=== PATIENT | female | born 1985 | race Caucasian/White ===

== ENCOUNTER → 2017-08-11 | Outpatient (CLI) | payer OTHER ==
[2017-08-11 13:14] LABS: Basophils % (A) 0 %; Eosinophils # (A) 0.3 k/uL (0-0.7); Eosinophils % (A) 5 %; HCT 42.6 % (34.0-46.0); HGB 14.2 gm/dL (11.4-16.0); Lymphocytes # (A) 1.3 k/uL (1.0-4.8); Lymphocytes % (A) 20 %; MCH 30.4 pg (25.0-35.0); MCHC 33.2 g/dL (31.0-37.0); MCV 91.5 fL (80.0-100.0); Mean Platelet Volume 6.8; Monocytes # (A) 0.4 k/uL (0-1.0); Monocytes % (A) 6 %; Neutrophils # (A) 4.3 k/uL (1.3-7.7); Neutrophils % (A) 67 %; Platelet Count 282 k/uL (150-450); RBC 4.65 m/uL (3.80-5.40); RDW 13.2 % (11.5-15.5); WBC 6.4 k/uL (3.8-10.6)
[2017-08-11 13:36] LABS: ALT 30 U/L (9-52); AST 26 U/L (14-36); Albumin 4.3 g/dL (3.5-5.0); Alkaline Phosphatase 80 U/L (38-126); Anion Gap 11 mmol/L; Blood Urea Nitrogen 12 mg/dL (7-17); Calcium 9.3 mg/dL (8.4-10.2); Carbon Dioxide 26 mmol/L (22-30); Chloride 103 mmol/L (98-107); Cholesterol 191 mg/dL (<200); Glucose 107 mg/dL (74-99); HDL Cholesterol 50 mg/dL (40-60); LDL Cholesterol,Calculated 126 mg/dL (0-99); Potassium 4.8 mmol/L (3.5-5.1); Sodium 140 mmol/L (137-145); Total Bilirubin 0.2 mg/dL (0.2-1.3); Total Protein 7.6 g/dL (6.3-8.2); Triglycerides 77 mg/dL (<150)
== END | disposition home or self-care (01) ==
LOC: LABWHC1 12:01
PROVIDERS: ATTEND Nurse Practitioner Family
DX: R63.5 Abnormal weight gain (principal); Z13.0 Encounter for screening for diseases of the blood and blood-forming organs and certain disorders involving the immune mechanism; Z13.1 Encounter for screening for diabetes mellitus; Z13.220 Encounter for screening for lipoid disorders
CPT/HCPCS: 36415; 80053; 80061; 84443; 85025

== ENCOUNTER 2018-08-27 17:55 | Emergency (ER) | payer OTHER ==
[2018-08-27 18:02] VITALS: BP 154/99; PULSE 110; RESP 18; TEMP 98.3
--- NOTE | 2018-08-27 18:26 | ED ---
Upper Extremity HPI - General Chief Complaint: Extremity Injury, Upper Stated Complaint: [facility] - lt wrist injury Time Seen by Provider: 08/27/18 18:03 Source: patient, RN notes reviewed, old records reviewed Mode of arrival: ambulatory Limitations: no limitations - History of Present Illness Initial Comments: Patient is a 33-year-old female who presents emergency Department with left wrist injury. She reports this occurred while she was at work. Patient states she was lifting a shoe box and felt a strain in her left wrist. She is right- handed. She reports tingling sensation in her hand. Denies any history of left wrist injuries. MD Complaint: Injury to:: left, wrist Onset/Timin -: hour(s) Handedness: right Improves With: immobilization Context: other (strain lifting shoe box at work) Associated Symptoms: heard/felt popping sensat - Related Data Home Medications Medication Instructions Recorded Confirmed Pedi Multivit No.25/Folic Acid 2 tab PO DAILY 12/31/15 01/07/16 [Flintstones Multivit Chew Tab] Previous Rx's Medication Instructions Recorded Acetaminophen-Codeine 300-30mg 1 tab PO Q4H PRN #30 tablet 01/08/16 [Tylenol #3] Ibuprofen [Motrin] 600 mg PO Q6HR PRN #30 tab 01/08/16 Ibuprofen 600 mg PO TID #20 tablet 08/27/18 Allergies Allergy/AdvReac Type Severity Reaction Status Date / Time No Known Allergies Allergy Verified 09/03/15 18:24 Review of Systems ROS Statement: Those systems with pertinent positive or pertinent negative responses have been documented in the HPI. ROS Other: All systems not noted in ROS Statement are negative. 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 Past Psychological History: No Psychological Hx Reported Smoking Status: Never smoker Past Alcohol Use History: None Reported Past Drug Use History: None Reported - Past Family History Mother Family Medical History: No Reported History General Exam - General Exam Comments Initial Comments: 33-year-old female. Alert and oriented. No significant distress. Limitations: no limitations General appearance: alert, in no apparent distress Head exam: Present: atraumatic, normocephalic, normal inspection Eye exam: Present: normal appearance, PERRL, EOMI. Absent: scleral icterus, conjunctival injection, periorbital swelling ENT exam: Present: normal exam, mucous membranes moist Neck exam: Present: normal inspection. Absent: tenderness, meningismus, lymphadenopathy Respiratory exam: Present: normal lung sounds bilaterally. Absent: respiratory distress, wheezes, rales, rhonchi, stridor Cardiovascular Exam: Present: regular rate, normal rhythm, normal heart sounds. Absent: systolic murmur, diastolic murmur, rubs, gallop, clicks GI/Abdominal exam: Present: soft, normal bowel sounds. Absent: distended, tenderness, guarding, rebound, rigid Extremities exam: Present: normal inspection, full ROM, normal capillary refill. Absent: tenderness, pedal edema, joint swelling, calf tenderness Left Forearm Wrist exam: Present: normal inspection, full ROM Hand Wrist exam: Present: normal inspection, full ROM, tenderness (She reports tenderness over the thenar eminence, and dorsum of the wrist. Normal capillary refill.) Back exam: Present: normal inspection Neurological exam: Present: alert, oriented X3, CN II-XII intact Psychiatric exam: Present: normal affect, normal mood Skin exam: Present: warm, dry, intact, normal color. Absent: rash Course Vital Signs 08/27/18 17:59 Temperature 98.3 F Pulse Rate 110 H Respiratory 18 Rate Blood Pressure 154/99 O2 Sat by Pulse 98 Oximetry Medical Decision Making - Medical Decision Making Patient is a 33-year-old female presents emergency department today for evaluation for left wrist pain after lifting up a shoe box. has pain over the dorsum of the wrist with extension. She has normal capillary refill and normal sensation distally. X-rays reviewed and normal. Discussed likely strain or sprain of the muscles. Discussed she can follow-up with orthopedic. Given Chaparro wrap splint. Discussed Motrin Tylenol for pain. Disposition Clinical Impression: Left wrist sprain Disposition: HOME SELF-CARE Condition: Good Instructions (If sedation given, give patient instructions): Wrist Injury (ED) Additional Instructions: Patient advised follow-up with primary care physician and orthopedic. Patient ran Chaparro wrap for support of the wrist. Ice the wrist. Return to emergency department if any alarming signs or symptoms occur. Prescriptions: Ibuprofen 600 mg PO TID #20 tablet Is patient prescribed a controlled substance at d/c from ED?: No Referrals: Mellisa Bhakta NPC [Primary Care Provider] - 1-2 days Joshua Galvan PAC [PHYSICIAN [facility] WORKER] - 1-2 days Time of Disposition: 19:06
--- NOTE | 2018-08-27 18:39 | XR ---
EXAMINATION TYPE: XR wrist complete LT DATE OF EXAM: 08/27/2018 CLINICAL HISTORY: Left wrist pain after picking up injury. TECHNIQUE: Frontal, lateral , scaphoid, and oblique images of the left wrist are obtained. COMPARISON: None FINDINGS: There is no acute fracture/dislocation evident in the left wrist. The joint spaces in the left wrist appear within normal limits. The overlying soft tissue appears unremarkable. IMPRESSION: There is no acute fracture or dislocation in the left wrist.
[2018-08-27] MEDS ORDERED: IBUPROFEN 600 MG STARTER PACK 4 TAB BTL PO STA (19:07)
== END 2018-08-27 19:35 | disposition home or self-care (01) ==
LOC: EC 17:55
DX: S63.502A Unspecified sprain of left wrist, initial encounter (principal); Z98.890 Other specified postprocedural states; X50.0XXA Overexertion from strenuous movement or load, initial encounter; Y92.69 Other specified industrial and construction area as the place of occurrence of the external cause; Y99.0 Civilian activity done for income or pay
CPT/HCPCS: 99284

== ENCOUNTER → 2019-08-29 | Outpatient (CLI) | payer OTHER ==
--- NOTE | 2019-08-29 15:35 | MR ---
EXAMINATION TYPE: MR lumbar spine wo/w con DATE OF EXAM: 08/29/2019 COMPARISON: MRI lumbar spine 09/18/2012 HISTORY: LBP, left leg weakness/numbness, surgery 2013 TECHNIQUE: Multiplanar, multisequence images of the lumbar spine were acquired utilizing 7.5 mL intravenous Gada vist gadolinium contrast. L1-L2: Normal disc appearance without desiccation. No herniation, protrusion or disc bulging. Left- sided facet arthropathy abuts and mildly indents the left posterior thecal sac. No canal stenosis is present. Foramina are patent bilaterally. L2-L3: Normal disc appearance without desiccation. No herniation, protrusion or disc bulging. Right -sided facet arthropathy. No canal stenosis is present. Foramina are patent bilaterally. L3-L4: Normal disc appearance without desiccation. Minimal disc bulging. No canal stenosis is presen t. Foramina are patent bilaterally. L4-L5: Disc desiccation. Mild disc bulging. Facet arthropathy. No canal stenosis is present. Mild nadeem ateral neural foramina narrowing. L5-S1: Disc desiccation. Moderate disc height loss. Postsurgical left L5 laminectomy and discectomy c hanges with no residual central or subarticular disc protrusion. There is lateral disc bulging seen b ilaterally. Facet arthropathy. No canal stenosis is present. Moderate left and severe right neural f oramina narrowing. Lumbar segments are intact. No paraspinal masses are identified. Conus medullaris has a normal appe arance and terminates at the level of L1. IMPRESSION: 1. Multilevel degenerative disc disease and facet arthropathy contributing to neural foraminal narro wing at L4-5 and L5-S1, worst at L5-S1 with severe right and moderate left neural foramina narrowing. No canal stenosis. 2. The surgical changes at L5-S1.
== END | disposition home or self-care (01) ==
LOC: RADMRIMAIN 13:28
PROVIDERS: ATTEND Nurse Practitioner Family
DX: M48.07 Spinal stenosis, lumbosacral region (principal); M48.061 Spinal stenosis, lumbar region without neurogenic claudication; M47.896 Other spondylosis, lumbar region; M47.897 Other spondylosis, lumbosacral region; M51.36 Other intervertebral disc degeneration, lumbar region; M51.37 Other intervertebral disc degeneration, lumbosacral region; Z98.890 Other specified postprocedural states
CPT/HCPCS: 72158; A9585

== ENCOUNTER → 2020-01-03 | Outpatient (CLI) | payer OTHER ==
[2020-01-03 13:33] VITALS: BP 141/96; PULSE 98; RESP 18; TEMP 98.9
--- NOTE | 2020-01-03 14:03 | P.PAINCN ---
History of Present Illness - Reason for Consult Consult date: 01/03/20 - History of Present Illness This is a 34-year-old patient referred by Dr. Mckay with a chief complaint of chronic pain in her lower back worse on the left side with radiation into her buttocks, posterior thigh, and left calf. He also has isolated pain in her left knee that radiates down to her foot circumferentially. It is worse with lifting and activity (she works at [employer]) and better with rest. She currently has no pain because she has been resting all day. Overall she is on her feet quite a bit at work working 8 hour shifts at a time and says it's hard to stand for that long. The pain gets very bad she takes Flexeril 10 mg and a Motrin 600 mg which does help. Showing takes these about once a day. In regards her management, she did have an L5 laminectomy discectomy in 2014. She notes that her pain prior to that surgery is the exact same pain as she is having right now. As noted above she takes Flexeril and Motrin as needed for pain medication. She has not tried any formal physical therapy or conservative measures that his chiropractor, massage, TENS unit. In addition to above, 13-point review of systems is also negative for chest pain, shortness of breath, changes in vision, changes in hearing, new onset weakness, abdominal pain, diarrhea, extreme fatigue, malaise, fever, skin changes, homicidal or suicidal ideation, or bowel or bladder incontinence. Physical exam: Vital Signs: Reviewed in EMR GENERAL: Well appearing, in no acute distress PSYCH: Mood and affect is appropriate. Awake, alert, and oriented SKIN: Skin color, texture, turgor normal, no rashes or lesions HEENT: Normocephalic, atraumatic. EOM intact CV: No pedal edema RESP: Respirations are unlabored, no audible wheezing GI: Abdomen non-distended MUSCULOSKELETAL: Bilateral upper and lower extremity strength is normal and symmetric. No atrophy or tone abnormalities are noted. Lumbar spine: Straight leg raising in the sitting position is negative for radicular pain. No pain to palpation over the lumbar spine and paraspinous muscles. Negative for pain with facet loading and back extension/rotation. Normal range of motion without pain reproduction Buttocks: No pain to palpation over the PSIS, Nabor test is negative Extremities: Peripheral joint ROM is full and pain free without obvious instability or laxity in all four extremities. No edema or skin discolorations noted. Gait: Gait is normal NEUR: Bilateral upper and lower extremity coordination and muscle stretch reflexes are 1/4 bilaterally in the patella and achilles. Negative clonus. No loss of sensation is noted. Cranial nerves are grossly intact. Imaging: MRI lumbar spine L1-L2 normal disc appearance. Left facet arthropathy abuts and mildly indents the left posterior thecal sac. L2-L3 normal L3-L4 normal L4-L5 disc bulging, facet arthropathy, mild bilateral neural foraminal narrowing. L5-S1: Disc desiccation, moderate disc height loss. Left L5 laminectomy discectomy changes no residual central subarticular protrusion. Facet arthropathy. Moderate left and severe right neural foraminal narrowing. Assessment: 1. Lumbar radicular pain 2. Knee osteoarthritis Plan: 1. Explanation: Diagnoses, prognoses, and multiple treatment options including but not limited to physical therapy, interventional therapies, medication management and surgery were discussed with the patient and all questions were answered to the patient's satisfaction. 2. Investigations: Aborted left knee x-rays for her. She is having isolated knee pain with Radiation to the foot, unclear if it is coming from the back however she notes that her left knee has been hurting for quite sometimes we can rule out any significant osteoarthritis. 3. Counseling: The patient was counseled for 3 minutes on BODY MASS INDEX, EXERCISE. Specifically, the patient was instructed regarding the importance of weight control, and exercise in the context of both chronic pain and overall health. 4. Procedures: At this point she is having no pains so we will hold off on any procedures. Given that her pain is the same as it was prior to the surgery, were we to order a procedure I would order a left-sided L5-S1 transforaminal epidural she has severe stenosis at the site and is having pain in the L5 and S1 distribution. I encouraged her to call us if her pain comes back in a way that is very severe and we can schedule her for this procedure. Until then we will focus on conservative measures. 5. Consultations: Written her prescription for physical therapy. 6. Medications: I written her prescription for lidocaine patches and TENS un its. I educated her that she can apply these patches all she is at work on areas that hurt the most. I educated her that she can use a TENS unit after days of work which can help calm down any pain flares. 7. Disposition: To see her in 8 weeks see how she's been doing with her conservative management as well as go over knee x-rays. If she does call in sooner than that, schedule her for L5 transforaminal epidural steroid injection on the left side. 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 Smoking Status: Never smoker - Past Family History Mother Family Medical History: No Reported History Medications and Allergies Home Medications Medication Instructions Recorded Confirmed Type Ibuprofen [Motrin] 600 mg PO Q6HR PRN #30 tab 01/08/16 01/03/20 Rx Cyclobenzaprine [Flexeril] 5 mg PO TID PRN 01/03/20 01/03/20 History Allergies Allergy/AdvReac Type Severity Reaction Status Date / Time No Known Allergies Allergy Verified 09/03/15 18:24 Physical Exam Vitals: Vital Signs Temp Pulse Resp BP Pulse Ox 01/03/20 13:27 98.9 F 98 18 141/96 96 Intake and Output 01/02/20 01/03/20 01/03/20 22:59 06:59 14:59 Other: Weight 77.111 kg PQRS Measure Charge Sheet PQRS Narrative: Smoking Status Never smoker Blood Pressure 141/96 Pain Intensity [Left Lower 0 Back] Scale Used Numeric (1 - 10) Hx Alcohol Use (MH) Yes: Rare Home Medications: Ambulatory Orders Ibuprofen [Motrin] 600 mg PO Q6HR PRN #30 tab 01/08/16 Cyclobenzaprine [Flexeril] 5 mg PO TID PRN 01/03/20
== END | disposition home or self-care (01) ==
LOC: PNWHC3 13:10
PROVIDERS: ATTEND Anesthesiology
DX: M54.16 Radiculopathy, lumbar region (principal); M17.10 Unilateral primary osteoarthritis, unspecified knee; Z79.891 Long term (current) use of opiate analgesic; Z79.899 Other long term (current) drug therapy
CPT/HCPCS: 99211

== ENCOUNTER → 2020-02-21 | Outpatient (CLI) | payer OTHER ==
--- NOTE | 2020-02-21 15:50 | XR ---
EXAMINATION TYPE: XR knee complete LT DATE OF EXAM: 02/21/2020 COMPARISON: NONE HISTORY: Pain TECHNIQUE: Three views are submitted. FINDINGS: Joint spaces are preserved. No erosive changes. Osseous structures are intact. No acute fracture se en. IMPRESSION: 1. No acute fracture or dislocation.
== END | disposition home or self-care (01) ==
LOC: RADXRMAIN 15:20
PROVIDERS: ATTEND Anesthesiology
DX: M17.12 Unilateral primary osteoarthritis, left knee (principal)

== ENCOUNTER 2020-09-06 18:17 | Emergency (ER) | payer OTHER ==
[2020-09-06 18:21] VITALS: BP 166/95; TEMP 98
[2020-09-06 18:33] VITALS: PULSE 110; RESP 20
[2020-09-06] MEDS ORDERED: dexAMETHasone 4 MG TAB PO STA (18:53)
--- NOTE | 2020-09-06 18:56 | ED ---
General Adult HPI - General Chief complaint: Back Pain/Injury Stated complaint: back pain Time Seen by Provider: 09/06/20 18:31 Source: patient Mode of arrival: ambulatory Limitations: no limitations - History of Present Illness Initial comments: Dictation was produced using [employer] dictation software. please excuse any grammatical, word or spelling errors. 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 Patient states that she has pain that originates from her left gluteus down the posterior portion of her left lower extremity. She did try the Motrin at home however when it usually works this time it hasn't really been in given her much relief. Patient has . She denies any back pain The ROS documented in this emergency department record has been reviewed and confirmed by me. Those systems with pertinent positive or negative responses have been documented in the HPI. All other systems are other negative and/or noncontributory. PHYSICAL EXAM: General Impression: Alert and oriented x3, not in acute distress HEENT: Normocephalic atraumatic, extra-ocular movements intact, pupils equal and reactive to light bilaterally, mucous membranes moist. Cardiovascular: Heart regular rate and rhythm Chest: Able to complete full sentences, no retractions, no tachypnea Abdomen: abdomen soft, non-tender, non-distended, no organomegaly Musculoskeletal: Pulses present and equal in all extremities, no peripheral edema, test palpation over the left piriformis Motor: no focal deficits noted Neurological: CN II-XII grossly intact, no focal motor or sensory deficits noted Skin: Intact with no visualized rashes Psych: Normal affect and mood ED course: 35-year-old feel clinical presentation consistent with acute on chronic sciatica. Signs upon arrival are within acceptable limits. Patient given a dose of Decadron. She is given analgesia. Patient told to rest her left hip. Patient given work note for 2 days. Massive follow-up with primary care doctor. - Related Data Home Medications Medication Instructions Recorded Confirmed Cyclobenzaprine [Flexeril] 5 mg PO TID PRN 01/03/20 01/03/20 Previous Rx's Medication Instructions Recorded Ibuprofen [Motrin] 600 mg PO Q6HR PRN #30 tab 01/08/16 oxyCODONE HCL/ACETAMINOPHEN 1 tab PO Q6HR PRN 3 Days #12 tab 09/06/20 [Percocet 5-325 mg] Allergies Allergy/AdvReac Type Severity Reaction Status Date / Time No Known Allergies Allergy Verified 09/06/20 18:21 Review of Systems ROS Statement: Those systems with pertinent positive or pertinent negative responses have been documented in the HPI. ROS Other: All systems not noted in ROS Statement are negative. 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 Past Psychological History: No Psychological Hx Reported Smoking Status: Never smoker Past Alcohol Use History: None Reported Past Drug Use History: None Reported - Past Family History Mother Family Medical History: No Reported History General Exam Limitations: no limitations Course Vital Signs 09/06/20 09/06/20 18:18 18:32 Temperature 98.0 F Pulse Rate 121 H 110 H Respiratory 16 20 Rate Blood Pressure 166/95 O2 Sat by Pulse 97 98 Oximetry Medical Decision Making - Lab Data Lab Results 09/06/20 Range/Units 18:34 Urine HCG, Qual Not Detected (Not Detectd) Disposition Clinical Impression: Sciatica Disposition: HOME SELF-CARE Condition: Fair Instructions (If sedation given, give patient instructions): Sciatica (ED) Prescriptions: oxyCODONE HCL/ACETAMINOPHEN [Percocet 5-325 mg] 1 tab PO Q6HR PRN 3 Days #12 tab PRN Reason: Pain Is patient prescribed a controlled substance at d/c from ED?: Yes If prescribed controlled substance>3 days was MAPS reviewed?: Prescribed <3 Days Referrals: Joaquin Melo MD [Primary Care Provider] - 1-2 days
== END 2020-09-06 19:08 | disposition home or self-care (01) ==
LOC: EC 18:17
DX: M54.32 Sciatica, left side (principal); Z79.1 Long term (current) use of non-steroidal anti-inflammatories (NSAID)
CPT/HCPCS: 81025; 99283; J8540

== ENCOUNTER → 2020-10-02 | Outpatient (CLI) | payer OTHER ==
[2020-10-02 19:01] LABS: Basophils # (A) 0.05 X 10*3/uL (0.00-0.10); Basophils % (A) 0.6 %; Eosinophils # (A) 0.18 X 10*3/uL (0.04-0.35); HCT 41.4 % (37.2-46.3); HGB 13.6 g/dL (12.0-15.0); Lymphocytes # (A) 1.84 X 10*3/uL (0.90-5.00); Lymphocytes % (A) 20.5 %; MCH 30.6 pg (27.0-32.0); MCHC 32.9 g/dL (32.0-37.0); MCV 93.2 fL (80.0-97.0); Mean Platelet Volume 10.6 fL (9.5-12.2); Monocytes # (A) 0.81 X 10*3/uL (0.20-1.00); Neutrophils # (A) 6.01 X 10*3/uL (1.80-7.70); Neutrophils % (A) 67.1 %; Platelet Count 256 X 10*3/uL (140-440); RBC 4.44 X 10*6/uL (4.10-5.20); RDW 12.6 % (11.5-14.5); WBC 8.96 X 10*3/uL (4.50-10.00)
[2020-10-02 21:50] LABS: African American GFR (CKD) 109.2 (60.0-200.0); Albumin 4.4 g/dL (3.80-4.90); Albumin/Globulin Ratio 1.47 (1.60-3.17); Anion Gap 10.6 mmol/L (4.00-12.00); BUN/Creat Ratio 17.5 Ratio (12.00-20.00); Calcium 9.2 mg/dL (8.7-10.3); Carbon Dioxide 25.4 mmol/L (21.6-31.8); Chol/HDL Ratio 3.66; LDL Cholesterol,Calculated 136.4 mg/dL (0.0-131.0); Non-African American GFR(CKD) 94.2 (60.0-200.0); Potassium 4.1 mmol/L (3.5-5.5); Total Bilirubin 0.3 mg/dL (0.3-1.2); Total Protein 7.4 g/dL (6.2-8.2); VLDL Calculation 17.6 mg/dL (5.00-40.00)
== END | disposition home or self-care (01) ==
LOC: LABWHC1 12:34
PROVIDERS: ATTEND Nurse Practitioner Family
DX: Z00.00 Encounter for general adult medical examination without abnormal findings (principal); Z13.220 Encounter for screening for lipoid disorders; Z13.1 Encounter for screening for diabetes mellitus
CPT/HCPCS: 36415; 80053; 80061; 85025

== ENCOUNTER → 2020-10-30 | Outpatient (CLI) | payer OTHER ==
--- NOTE | 2020-10-30 12:05 | MR ---
EXAMINATION TYPE: MR lumbar spine wo/w con DATE OF EXAM: 10/30/2020 COMPARISON: Lumbar MRI 08/29/2019 HISTORY: Low back pain, left side parasthesis, M54.5 M54.32 Z98.890 R20.2 TECHNIQUE: Multiplanar, multisequence images of the lumbar spine were acquired without and with 7.5 mL intraveno us Gadavist gadolinium contrast. There is no significant interval change. L1-L2: There is some facet arthropathy change is noted on previous, no disc herniation or foraminal e ncroachment L2-L3: Normal disc appearance without desiccation. No herniation, protrusion or disc bulging. Facet arthropathy changes are present.. Foramina are patent bilaterally. L3-L4: Normal disc appearance without desiccation. No herniation, protrusion or disc bulging. Facet arthropathy changes present. Foramina are patent bilaterally. L4-L5: Posterior disc bulge causes effacement of anterior thecal sac similar to prior exam. Facet art hropathy with hypertrophy ligamentum flavum causes some posterior lateral mass effect on the thecal s ac. No significant foraminal encroachment. L5-S1: There is facet arthropathy change. There is encroachment on the lateral recesses. Left L5 lami nectomy change is again seen. Lateral disc bulging is again noted, circumferential extension endplate disc complex encroaches on the foramina. Lumbar segments are intact. No paraspinal masses are identified. Conus medullaris has a normal appe arance. Lumbar vertebral bodies show preserved height and alignment, there is multilevel spondylosis with endplate discogenic marrow signal change. Loss of disc height signal is greatest at L5-S1 consis tent with disc desiccation and degenerative disc disease. No significant spinal stenosis. No abnormal enhancement following contrast administration. IMPRESSION: Degenerative disc disease, facet arthropathy shows a similar appearance to prior exam.
== END | disposition home or self-care (01) ==
LOC: RADMRIMAIN 10:24
PROVIDERS: ATTEND Family Medicine
DX: M51.36 Other intervertebral disc degeneration, lumbar region (principal); M47.816 Spondylosis without myelopathy or radiculopathy, lumbar region
CPT/HCPCS: 72158; A9585

== ENCOUNTER 2021-01-27 13:16 | Day surgery (SDC) | payer OTHER ==
[2021-01-26 15:35] VITALS: BMI 35.5
[~2021-01-27 13:16] MED LIST: LACTATED RINGERS 1,000 ML IV SCH
[2021-01-27 13:27] VITALS: TEMP 98.3
[2021-01-27] MEDS ORDERED: IOPAMIDOL M200 10 ML VIAL ONE (13:37)
[2021-01-27] MEDS ORDERED: MIDAZOLAM 2 MG/2 ML VIAL ONE (13:37)
[2021-01-27] MEDS ORDERED: LIDOCAINE 1% INJ 10MG/ML (20 ML MDV) ONE (13:37)
[2021-01-27] MEDS ORDERED: DEXAMETHASONE SOD PHOSPHATE 10 MG/ML 1 ML VIAL ONE (13:37)
[2021-01-27] MEDS ORDERED: .fentaNYL (PF) 50 MCG/ML 2 ML AMP ONE (13:37)
--- NOTE | 2021-01-27 13:54 | P.PCN ---
Date of Procedure: 01/27/21 Surgeon: Frances Astudillo Pathology: none sent Condition: stable Disposition: PACU Description of Procedure: Preoperative Diagnosis: lumbar radiculopathy/postlaminectomy pain syndrome Postoperative Diagnosis: Same as above Procedure(s) Performed: Transforaminal epidural steroid injection for level L5- S1 on the left side under fluoroscopic guidance Anesthesia: Local with lidocaine 1% and IV moderate conscious sedation with fentanyl and Versed Surgeon: Frances Astudillo MD Condition: stable Disposition: PACU Description of Procedure: . The patient was seen and identified in the preoperative area. Risks, b enefits, complications, and alternatives were discussed with the patient. The patient agreed to proceed with the procedure and signed the consent. IV was started, and vital signs were stable. Patient was taken to the OR and time out was completed. The patient was placed in the prone position on procedure table and a pillow was placed under the abdomen to reduce lumbar lordosis. The lumbosacral area was prepped and draped in the usual sterile fashion. Critical pause was taken. Vital signs were closely monitored during the procedure. Conscious sedation was used during the procedure to decrease patients anxiety. Lidocaine 1% was used to numb the skin up at the target points that were chosen as follows: For the L5-K3hitzm the target point was at the 6 o'clock position of L5 pedicle in the left oblique view. The correct view was obtained by squaring off the L5 vertebra on the AP view of fluoroscopy then the C-arm was tilted to the left oblique position to an angle at which the superior articular process of the lower vertebra would point to the middle of the pedicle above it at the 6 o'clock position as mentioned above . Then I used 3-1/2 inch 22-gauge Quincke spinal needle to get to the target point mentioned above by touching the inferior edge of the L5 pedicle and then walking off the bone and into the superior part of the L5-S1 foramen using the lateral view of fluoroscopy. I then injected 1 mL of Isovue contrast dye which showed typical epidurogram around the L5 nerve root and into the epidural space. Then I injected 1 mL of lidocaine 1% +10 mg of Decadron.. Patient tolerated procedure well,and was transferred to PACU in stable condition. A copy of the needle placement picture was saved to the fluoroscopy machine.
[2021-01-27 14:22] VITALS: BP 128/89; PULSE 74; RESP 18
--- NOTE | 2021-01-27 14:28 | FL ---
Fluoroscopy HISTORY: Pain 14 seconds fluoroscopy time supplied to the referring clinician. 2 intraoperative C-arm images docum ent the procedure. See dictated report from anesthesia.
== END 2021-01-27 14:30 | disposition home or self-care (01) ==
LOC: ORPAIN 13:16
PROVIDERS: ATTEND Anesthesiology
DX: M54.16 Radiculopathy, lumbar region (principal); M96.1 Postlaminectomy syndrome, not elsewhere classified
CPT/HCPCS: 64483; 81025; J2250; J1100; J2001 ×2; J3010; Q9966; 99152

== ENCOUNTER 2021-04-07 12:21 | Day surgery (SDC) | payer OTHER ==
[2021-04-07 12:56] VITALS: TEMP 98.1
[2021-04-07] MEDS ORDERED: LACTATED RINGERS 1,000 ML IV ONE (13:09)
[2021-04-07] MEDS ORDERED: IOPAMIDOL M200 10 ML VIAL ONE (13:15)
[2021-04-07] MEDS ORDERED: methylPREDNISolone ACETATE 40 MG/ML 1 ML VIAL ONE (13:15)
[2021-04-07] MEDS ORDERED: fentaNYL (PF) 50 MCG/ML 2 ML AMP ONE (13:15)
[2021-04-07] MEDS ORDERED: MIDAZOLAM 2 MG/2 ML VIAL ONE (13:15)
--- NOTE | 2021-04-07 13:29 | P.PCN ---
Date of Procedure: 04/07/21 Procedure(s) Performed: PREOPERATIVE DIAGNOSIS:1- Lumbar radiculopathy . 2-post laminectomy pain syndrome POSTOPERATIVE DIAGNOSIS: Same as preoperative diagnoses. PROCEDURE 1. Transforaminal epidural steroid injection under fluoroscopic guidance at left L5-S1 level. (Fluoroscopy images stored on file in the radiology Department ) 2. Lumbar epidurogram . ANESTHESIA: Local with 1% lidocaine 3 ml , moderate sedation with intravenous Versed 2 mg and fentanyle 100 micrograms. EBL: Minimal PROCEDURE INDICATION: The patient with low back pain and radiculopathy symptoms unresponsive to conservative treatment. PROCEDURE DESCRIPTION / TECHNIQUE: The patient was seen and identified in the preoperative area. Risks, benefits, complications, and alternatives were discussed with the patient. The patient agreed to proceed with the procedure and signed the consent. IV was started, and vital signs were stable. Patient was taken to the OR and time out was completed. The patient was placed in the prone position on procedure table and a pillow was placed under the abdomen to reduce lumbar lordosis. The lumbosacral area was prepped and draped in the usual sterile fashion. Critical pause was taken. Vital signs were closely monitored during the procedure. Conscious sedation was used during the procedure to decrease patient s anxiety. Using oblique fluoroscopy, the chin of the ``Jaylon dog at L5-S1 level was identified, and the skin and deeper tissues just below was localized with 1% lidocaine. Subsequently, a 22-gauge 5-inch spinal needle was advanced under a tunneled view fluoroscopic guidance just underneath the chin of the ``Jaylon dog at the left L5-S1 Under lateral fluoroscopy, the needle was then advanced to the posterior border of the interforaminal space. After negative aspiration of CSF and blood and with no paresthesias, 1 mL Isovue 200 contrast dye was injected excellent epidurogram and outlining of the nerve root Subsequently, 3 mL of block solution containing 80 mg Depo-Medrol and 2 mL of 0.9% normal saline PF was injected. Needle was removed . At the end of the procedure, skin was cleansed, and bandages were applied. COMPLICATIONS:none DISPOSITION / PLANS: The patient was placed in a supine position and transferred to the recovery area in a stable condition for observation. There was no evidence of lower extremity motor or sensory deficit after the procedure. Patient was discharged from the recovery room after meeting discharge criteria. Home discharge instructions were given to the patient by the staff. The patient was reexamined prior to discharge.
[2021-04-07] MEDS ORDERED: IV FLUID CONTINUATION 850 ML IV ONE (13:32)
[2021-04-07 13:57] VITALS: BP 138/88; PULSE 76; RESP 20
[2021-04-07] MEDS ORDERED: LIDOCAINE 1% (10MG/ML) FOR IV START INTRADERMA PRN (14:02)
[2021-04-07] MEDS ORDERED: LACTATED RINGERS 1,000 ML IV SCH (14:02)
--- NOTE | 2021-04-07 17:12 | FL ---
Fluoroscopy HISTORY: Pain 7 seconds fluoroscopy time supplied to the referring clinician. 1 intraoperative C-arm images docume nt the procedure. See dictated report from anesthesia.
== END 2021-04-07 14:00 | disposition home or self-care (01) ==
LOC: ORPAIN 12:21
PROVIDERS: ATTEND Specialist
DX: M96.1 Postlaminectomy syndrome, not elsewhere classified (principal)
CPT/HCPCS: 81025; 64483; J2250; J1030; J3010; Q9966; 99152

== ENCOUNTER → 2021-05-06 | Outpatient (CLI) | payer OTHER ==
[2021-05-06 13:57] VITALS: BP 143/95; PULSE 97; RESP 18; TEMP 98.6
--- NOTE | 2021-05-06 14:25 | P.PN ---
Subjective Progress Note Date: 05/06/21 Principal diagnosis: A 35 yr old female with a history of severe and chronic low back pain secondary to lumbar degenerative disc diseases and lumbar spondylosis with facet arthropathy presents today for evaluation status post left TFESI L5-S1 #2. Patient states she experienced 10% pain relief status post procedure. Pain level is currently at 7 out of 10 in intensity, achy, sharp sensation in the lower aspects of the lumbar spine where it meets the tailbone with radiation of sharp pain down the left lower extremity greater than right. Pain is provoked by sitting and standing for periods of 20 minutes or more or lifting. Pain is alleviated with medication, injections, heat, physical therapy with massage in the past, daily home stretching regimen, walking and rest. Interventional pain procedures completed include L TFESI L5-S1 #2 Patient is currently on Aleve OTC Patient denies any side effects of the medication(s), denies excessive drowsiness or sleepiness, denies suicidal ideation and reports that the current pain medication is helping to control the pain and improve activities of daily living. Patient denies any motor or sensory deficits. Patient denies any fever or night sweats, denies any change in the bowel movements or urination. Physical Examination: -Constitutional: Cooperative. Not in acute distress . -HEENT: Neck is supple. No lymphadenopathy. No thyromegaly. Normal thyroid size. Eyes: No ptosis , no icterus, no photophobia. ENT: No auditory deficits. Normal oropharynx. No Thrush. - Respiratory: Chest clear to auscultations bilaterally. No wheezing. No rhonchi. - Cardiovascular: Regular rate and rhythm. S1 / S2 , no S3 , no S4. - Gastrointestinal: Abdomen soft no tenderness. Bowel sounds positive in all four quadrants. No organomegaly. - Genitourinary: Deferred. - Neurologic: Cranial nerve II to XII intact. No focal neurological deficits. - Psychatric: Alert & oriented x 3. Matching mood & appropriate affect. Judgment and insight intact. - Lymphatic: No Lymphadenopathy. - Musculoskeletal: Cervical spine: Muscle bulk/ tone/ strength in the bilateral upper extremities normal. Facet loading test cervical area positive. Lumbar spine: Motor bulk/ tone/ strength lower extremities , thigh and legs : 5/5 Deep tendon reflexes : Normal Knee Jerk. Normal Ankle Jerk . Vertebral body tenderness to palpation over Lumbar Facet Loading Test positive Straight Leg Raise: positive at 30 degrees right side/ left side Gaenslen's Test positive Sacral spine : Severe tenderness over the Sacroiliac joint: right side / left side Range of motion: Flexion of the lumbar spine <60 degrees Range of motion: Extension of the lumbar spine 10 degrees Gaenslen's Test positive Nabor test: positive right side < left side Assessment and plan: Chronic low back pain secondary to lumbar degenerative disc disease , lumbar spondylosis with facet arthropathy without myelopathy Recommendation of Facet Block of the Medial Branches L5-S1 #1. May need a series of injections, up until RFA, to obtain optimal pain relief. Denies anticoagulant use. Denies buttock history of diabetes. Risks, benefits of procedure discussed and patient verbalized understanding. All patient questions answered MAPS reviewed and it was appropriate. I have spent 31 minutes on patient care today. Dr Theodore was available by phone for the evaluation of this patient. The time was used to review the medical records including relevant urine studies and Prescription history (MAPs), review of the available imaging, evaluation and examination of the patient, coordination of care with the medical staff and if applicable referring physicians, as well as creation of the medical record Objective - Vital Signs Vital signs: Vital Signs Temp 98.6 F 05/06/21 13:52 Pulse 97 05/06/21 13:52 Resp 18 05/06/21 13:52 BP 143/95 05/06/21 13:52 Pulse Ox 95 05/06/21 13:52 Intake & Output 05/05/21 05/06/21 05/06/21 18:59 06:59 18:59 Weight 76.204 kg PQRS Measure Charge Sheet Mode of Arrival: Ambulatory - Pain Location Left Lower Back Non-Pharmacological Interventions: Heat, Home Exercise, Physical Therapy, Posit ion/Reposition, Stretching Pharmacological Interventions: Epidural, PRN Medication PQRS Narrative: Smoking Status Never smoker Blood Pressure 143/95 Pain Intensity [Left Lower 7 Back] Scale Used Numeric (1 - 10) Hx Alcohol Use (MH) Yes: Rare Home Medications: Ambulatory Orders Ibuprofen [Motrin] 600 mg PO Q6HR PRN #30 tab 01/08/16 Cyclobenzaprine [Flexeril] 5 mg PO TID PRN 01/03/20
== END ==
LOC: PNWHC3 13:24
PROVIDERS: ATTEND Specialist
DX: M47.816 Spondylosis without myelopathy or radiculopathy, lumbar region (principal); M51.36 Other intervertebral disc degeneration, lumbar region; G89.29 Other chronic pain
CPT/HCPCS: 99211

== ENCOUNTER 2021-06-11 12:16 | Day surgery (SDC) | payer OTHER ==
[2021-06-11 12:37] VITALS: RESP 16; TEMP 98
[2021-06-11] MEDS ORDERED: LACTATED RINGERS 1,000 ML IV ONE (12:41)
[2021-06-11] MEDS ORDERED: TRIAMCINOLONE ACETONIDE 40 MG/ML 1 ML VIAL ONE (12:41)
[2021-06-11] MEDS ORDERED: ROPIVACAINE 5MG/ML 20ML VIAL ONE (12:41)
[2021-06-11] MEDS ORDERED: MIDAZOLAM 2 MG/2 ML VIAL ONE (12:41)
[2021-06-11] MEDS ORDERED: fentaNYL (PF) 50 MCG/ML 2 ML AMP ONE (12:41)
[2021-06-11] MEDS ORDERED: LACTATED RINGERS 1,000 ML IV SCH (13:00)
--- NOTE | 2021-06-11 13:02 | P.PCN ---
Date of Procedure: 06/11/21 Description of Procedure: Pre- and Post-operative Diagnosis: Lumbar facet arthropathy, and lumbar spondylosis without myelopathy. Procedure: #1 Diagnostic dorsal ramus block at Lumbar 5/ sacral ala levels (total 2 levels) Surgeon: Con Pinzon Anesthesia: Local: 1% Lidocaine, IV sedation : Versed and fentanyl. Complications: None EBL: None Specimen removed: None Fluoroscopic image: Saved to patient electronic medical records. Indications for Procedure: The patient is well known to pain clinic for his chronic low back pain management. The lumbar facet loading test was positive with a clinical diagnosis of lumbar facet arthropathy. Failed with conservative therapy. Came here for interventional help for better pain relief. Procedure and Findings: The patient was seen and examined. The written informed consent was obtained after explaining the risks, benefits and alternatives of the procedure to the patient. The patient was brought to the procedure room and was placed in the prone position on the operating table table. A pillow was placed under the abdomen to reduce lumbar lordosis. Standard anesthesia monitoring was done through out the procedure. The skin preparation was done with ChloraPrep, and draping was done in usual sterile fashion. Sterile technique was observed throughout the procedure. Under fluoroscopic guidance, right the Lumbar 5 and Sacral ala levels were identified in the AP view. For lumbar L5 levels the targeting area of superior articular process, and close to the most medial and superior aspect of transverse process identified, marked. 1ml of 1% Lidocaine was used with a 25 gauge needle to achieve adequate local anesthesia of the skin and subcutaneous tissue at each level. A 22 gauge 3.5 inch spinal needle was placed and advanced targeting area which was close to the most medial and superior aspect of the transverse process. For Lumbar 5/ sacral ala level, fluoroscope was used in the anteroposterior view, and the needle tip was placed at the superior and most medial part of sacral ala close to the superior articular process. A bony contact was obtained and needle tip position was confirmed at anteroposterior view. No paresthesia was noted. A negative aspiration was confirmed. 1 ml abel ution per level was injected, the block solution containing 3 ml of 0.5% ropivacaine preservative-free solution mixed with 40 MG of Kenalog. The needles were removed intact. Entire procedure repeated on the left side. Lumbar area was cleaned and bandages were applied. Disposition : The patient tolerated the procedure very well. The patient was transferred to the recovery room and remained stable until discharged home. The patient was given detailed discharge instructions for infection, bleeding, and increased pain at the injection site, and was advised to seek immediate medical attention should significant side effects develop. The patient will be scheduled with Pain Clinic within 4 weeks for repeat procedure if it's helpful.
[2021-06-11] MEDS ORDERED: IV FLUID CONTINUATION 800 ML IV ONE (13:06)
[2021-06-11 13:31] VITALS: BP 118/82; PULSE 89
--- NOTE | 2021-06-11 13:45 | FL ---
Fluoroscopy HISTORY: Pain 4 seconds fluoroscopy time supplied to the referring clinician. 2 intraoperative C-arm images docume nt the procedure. See dictated report from anesthesia.
== END 2021-06-11 13:39 | disposition home or self-care (01) ==
LOC: ORPAIN 12:16
DX: G89.29 Other chronic pain (principal); M47.816 Spondylosis without myelopathy or radiculopathy, lumbar region; M54.16 Radiculopathy, lumbar region
CPT/HCPCS: 64493; 64494; 81025; J2250; J3301; J3010; J2795; 99152

== ENCOUNTER 2021-07-30 11:20 | Day surgery (SDC) | payer OTHER ==
[2021-07-29 12:14] VITALS: BMI 35.7
[2021-07-30] MEDS ORDERED: LACTATED RINGERS 1,000 ML IV SCH (11:27)
[2021-07-30] MEDS ORDERED: LIDOCAINE 1% (10MG/ML) FOR IV START INTRADERMA PRN (11:27)
[2021-07-30 11:37] VITALS: TEMP 98.7
[2021-07-30] MEDS ORDERED: methylPREDNISolone ACETATE 40 MG/ML 1 ML VIAL ONE (12:39)
[2021-07-30] MEDS ORDERED: MIDAZOLAM 2 MG/2 ML VIAL ONE (12:39)
[2021-07-30] MEDS ORDERED: fentaNYL (PF) 50 MCG/ML 2 ML AMP ONE (12:39)
[2021-07-30] MEDS ORDERED: ROPIVACAINE 5MG/ML 20ML VIAL ONE (12:39)
--- NOTE | 2021-07-30 12:58 | P.PCN ---
Date of Procedure: 07/30/21 Procedure(s) Performed: PREOPERATIVE DIAGNOSIS : 1- Lumbar spondylosis with Facet Arthropathy without myelopathy . 2- Lumber degenerative disc disease POSTOPERATIVE DIAGNOSIS: 1- Lumbar spondylosis with Facet Arthropathy without myelopathy . 2- Lumber degenerative disc disease PROCEDURE: Diagnostic bilateral L4 , and L5 medial branch block under fluoroscopy guidance(fluoroscopy images available in the radiology Department ) ( To target the facet joint between Bilateral L5-S1 )# 2nd ANESTHESIA:, moderate sedation with intravenous Versed 2 mg and Fentanyl 100 mcg. EBL: Minimal COMPLICATION: None PROCEDURE INDICATION: Chronic low back pain secondary to Facet arthropathy unresponsive to conservative treatment. PROCEDURE DESCRIPTION: the patient was seen and identified in the preop holding area , risks and benefits and possible complications of the procedure and alternative were discussed with the patient, and the patient agreed to proceed with the procedure and signed the consent and vital signs monitored during the procedure and fluoroscopy was used to maximize the benefit and accuracy of the needle placement, and sedation was given to decrease patient an xiety, patient was taken to the procedure room and placed in prone position vital signs monitored in the back prepped with chlorhexidine X3 then under strict sterile technique using a right oblique fluoroscopy ,the junction of the transverse process and the superior articulating process of the right L4 , and L5 vertebra which corresponding to the fluoroscopy image of the eye of the Jaylon dog on the block side for the medial branches and subsequently , after local infiltration of skin and subcu tissuies with Ropivacaine 0.5 % , one mL at each level ,then 22-gauge Quincke-type needles , 2 needle was used , each one of them placed at the junction of the base of the transverse process and the superior articular process at the appropriate level, and the needle was advanced until the periosteum contacted, needle placement confirmed with AP oblique and lateral view and after appropriate needle placement confirmed, and after negative aspiration for heme and CSF and there was no paresthesia 1 mL of Ropivacaine 0.5% mixed with 20 mg Depo-Medrol , then half mL injected at each level after negative aspiration the needle subsequently removed and the same procedure repeated for the left side at left side at L4 and L5 levels. At the end of the procedure and the needles removed and a bandage applied after the skin was cleaned the cleaning solution patient taken to recovery room in stable condition and monitors in the recovery room for 20-30 minutes and discharged home in stable condition after discharge criteria met and patient will follow up with the pain clinic in 2-4 weeks
[2021-07-30] MEDS ORDERED: IV FLUID CONTINUATION 1,000 ML IV ONE (13:00)
[2021-07-30 13:03] VITALS: RESP 16
[2021-07-30 13:17] VITALS: BP 132/93; PULSE 84
--- NOTE | 2021-07-30 14:13 | FL ---
Fluoroscopy HISTORY: Pain 25 seconds fluoroscopy time supplied to the referring clinician. 4 intraoperative C-arm images docum ent the procedure. See dictated report from anesthesia.
== END 2021-07-30 13:38 | disposition home or self-care (01) ==
LOC: ORPAIN 11:20
PROVIDERS: ATTEND Specialist
DX: M47.816 Spondylosis without myelopathy or radiculopathy, lumbar region (principal); M51.36 Other intervertebral disc degeneration, lumbar region
CPT/HCPCS: 81025; 64493; J2250; J1030; J3010; J2795; 99152

== ENCOUNTER → 2021-08-20 | Outpatient (CLI) | payer OTHER ==
[2021-08-20 13:43] VITALS: BP 147/93; PULSE 102; RESP 18; TEMP 98.6
--- NOTE | 2021-08-20 14:11 | P.PAINPG ---
Objective - Vital Signs Vital signs: Vital Signs Temp 98.6 F 08/20/21 13:35 Pulse 102 H 08/20/21 13:35 Resp 18 08/20/21 13:35 BP 147/93 08/20/21 13:35 Pulse Ox 96 08/20/21 13:35 FiO2 Intake & Output 08/19/21 08/20/21 08/20/21 18:59 06:59 18:59 Weight 165 kg PQRS Measure Charge Sheet Mode of Arrival: Ambulatory Comment: A 36 yr old female with a history of severe and chronic low back pain secondary to lumbar degenerative disc diseases and lumbar spondylosis with facet arthropathy presents today for evaluation of MBB BL L5-S1 #2. She experienced 100% pain relief x 1 day s/p procedure. Pain level is currently at 4/10 in intensity, localized in LBP with radiation to LEs, L>R, frequent, throbbing / shooting pain in character. Pain is provoked by standing for periods of 30 min or more. Pain is alleviated with PT integrated with massage therapy x 2 mo in Oct, 2020, heat, ice, medications, laying supine. Interventional pain procedures completed include MBB BL L5-S1 #2 Patient is currently on Ibuprofen, Aleve OTC Patient denies any side effects of the medication(s), denies excessive drowsiness or sleepiness, denies suicidal ideation and reports that the current pain medication is helping to control the pain and improve activities of daily living. Patient denies any motor or sensory deficits. Patient denies any fever or night sweats, denies any change in the bowel movements or urination. Physical Examination: -Constitutional: Cooperative. Not in acute distress . - Neurologic: Cranial nerve II to XII intact. No focal neurological deficits. - Psychatric: Alert & oriented x 3. Matching mood & appropriate affect. Judgment and insight intact. - Musculoskeletal: Cervical spine: Muscle bulk/ tone/ strength in the bilateral upper extremities normal Vertebral body tenderness to palpation over Spurling test positive Distraction test positive Facet loading test positive Thoracic spine Muscle bulk / tone/ strength in the bilateral paraspinal muscles normal Vertebral body tender to palpation over Facet loading test positive Lumbar spine: Motor bulk/ tone/ strength lower extremities , thigh and legs : 5/5 Deep tendon reflexes : Normal Knee Jerk. Normal Ankle Jerk . Vertebral body tenderness to palpation over Lumbar Facet Loading Test positive BL L5-S1 with accompanying paraspinal TTP Straight Leg Raise: positive at 30 degrees right side/ left side Gaenslen's Test positive Sacral spine : Severe tenderness over the Sacroiliac joint: right side / left side Range of motion: Flexion of the lumbar spine <60 degrees Range of motion: Extension of the lumbar spine <20 degrees Gaenslen's Test positive Marek's Test positive Nabor test: positive right side / left side Thigh Thrust Test Sacral Thrust Test Assessment and plan: Chronic low back pain secondary to lumbar degenerative disc disease , lumbar spondylosis with facet arthropathy without myelopathy Recommendation of BL RFA L5-S1. Risks, benefits of procedure discussed and pt verbalized understanding. Denies anticoagulant use or medical history of diabetes. All patient questions answered MAPS reviewed and it was appropriate. Prescription refill for Ibu 600mg #60 w 1 refill. Use, side effects and interactions discussed. Pt denies renal issues. Pt acknowledged understanding. I have spent less than 30 minutes on patient care today. Dr Theodore was available by phone for the evaluation of this patient. The time was used to review the medical records including relevant urine studies and Prescription history (MAPs), review of the available imaging, evaluation and examination of the patient, coordination of care with the medical staff and if applicable referring physicians, as well as creation of the medical record - Pain Location Bilateral Lower Back Non-Pharmacological Interventions: Binder, Heat, Ice, Inactivity, Massage, Physical Therapy, Standing Pharmacological Interventions: Block, Epidural, Medication, PRN Medication, Topical Medication PQRS Narrative: Smoking Status Never smoker Blood Pressure 147/93 Pain Intensity [Bilateral 4 Lower Back] Scale Used Numeric (1 - 10) Hx Alcohol Use (MH) Yes: Rare Home Medications: Ambulatory Orders Naproxen Sodium [Aleve] 220 mg PO DAILY 06/11/21 Ibuprofen [Motrin] 600 mg PO Q12HR PRN 30 Days #60 tab 08/20/21 Controlled Substance Measures - Controlled Substance Measures Is patient prescribed a controlled substance at discharge?: No
== END ==
LOC: PNWHC3 13:16
PROVIDERS: ATTEND Specialist
DX: M47.816 Spondylosis without myelopathy or radiculopathy, lumbar region (principal); G89.29 Other chronic pain; M51.36 Other intervertebral disc degeneration, lumbar region
CPT/HCPCS: 99211

== ENCOUNTER 2021-09-18 12:10 | Day surgery (SDC) | payer OTHER ==
[2021-09-16 12:39] VITALS: BMI 35.1
[~2021-09-18 12:10] MED LIST changes: +LIDOCAINE 1% (10MG/ML) FOR IV START INTRADERMA PRN
[2021-09-18 12:32] VITALS: RESP 16; TEMP 97.6
[2021-09-18] MEDS ORDERED: fentaNYL (PF) 50 MCG/ML 2 ML AMP ONE (12:48)
[2021-09-18] MEDS ORDERED: methylPREDNISolone ACETATE 40 MG/ML 1 ML VIAL ONE (12:48)
[2021-09-18] MEDS ORDERED: MIDAZOLAM 2 MG/2 ML VIAL ONE (12:48)
[2021-09-18] MEDS ORDERED: ROPIVACAINE 5MG/ML 20ML VIAL ONE (12:48)
--- NOTE | 2021-09-18 13:09 | P.PCN ---
Date of Procedure: 09/18/21 Procedure(s) Performed: PREOPERATIVE DIAGNOSIS: 1-Lumbar Spondylosis with Facet Arthropathy without myelopathy. 2- Lumber degenerative disc disease. POSTOPERATIVE DIAGNOSIS: 1- Lumbar Spondylosis with Facet Arthropathy without myelopathy. 2- Lumber degenerative disc disease. PROCEDURES : Bilateral Radiofrequency thermocoagulation, L4 , and L5 medial branch, with fluoroscopic guidance (fluoroscopy images available in the radiology department) ( to denervate the facet joint at bilateral L5-S1 levels ). ANESTHESIA: Monitored anesthesia care as per anesthesia department . EBL: Minimal PROCEDURE INDICATION: The patient with low back pain secondary to lumbar facet arthropathy who had more than 50% relief of her pain with previous diagnostic lumbar medial branch block with bupivacaine. PROCEDURE DESCRIPTION / TECHNIQUE: The patient was seen and identified in the preoperative area. Risks, benefits, complications, including but not limited to risk of infection ,bleeding , allergic reactions to the medications and no complete pain releife , and alternatives were discussed with the patient, the patient agreed to proceed with the procedure and signed the consent. IV was started. Vital signs remained stable throughout the procedure. Patient was taken to the OR and time out was completed. The patient was placed in the prone position on the procedure table. The lumber area was prepped and draped in the usual sterile fashion. . Vital signs were closely monitored during the procedure .IV sedation was used during the procedure to decrease patients anxiety. Using AP and then oblique fluoroscopy, the ``eye of the Jaylon dog corresponding to the connection between the superior and transverse articular processes of right L4, and L5 were identified, marked, and localized with 1% lidocaine. Subsequently, a [id number] radiofrequency cannula with a 10-mm active tip was advanced guided by fluoroscopy to each of the``eyes of the Jaylon dog at right L4, and L5. Each site then underwent sensory testing at 50 Hz and 0 to 1 volt and motor testing at 2.5 Hz and 0 to 3 volt with local stimulation, but no radicular symptoms down the legs. Thereafter each sites underwent radiofrequency thermocoagulation at 80 degrees celsius for 90 seconds after injecting 0.5 ml of PF Ropivacaine 1ml, then after the thermocoagulation done , 1 ml of the block solution containing Depo-Medrol 20 mg and 2 ml of Ropivacaine 0.5% was injected at the right L4,L5 , levels after negative aspiration of CSF and blood and with no paresthesias. Cannulas were retracted while injecting lidocaine 1% until the needle is out. The same procedure was repeated at the level of Left L4, and L5 levels. At the end of the procedure, the skin was cleansed and bandages were applied. COMPLICATIONS: No acute complications. DISPOSITION / PLANS: The patient was placed in a supine position and transferred to the recovery area in a stable condition for observation and was discharged from the recovery room after meeting discharge criteria. Home discharge instructions given to the patient by the staff. The patient was reexamined prior to discharge. The patient will schedule a follow up in the clinic in 2-4 weeks.
[2021-09-18 13:39] VITALS: BP 122/84; PULSE 86
[2021-09-18] MEDS ORDERED: IV FLUID CONTINUATION 1,000 ML IV ONE (13:39)
--- NOTE | 2021-09-18 13:55 | FL ---
Intraoperative/procedural fluoroscopic services were provided. Total fluoroscopy time is 9 seconds wi th a total of 6 submitted images to PACS. Please see the operative/procedural note for further detail s.
== END 2021-09-18 13:46 | disposition home or self-care (01) ==
LOC: ORPAIN 12:10
PROVIDERS: ATTEND Specialist
DX: M47.816 Spondylosis without myelopathy or radiculopathy, lumbar region (principal); M47.817 Spondylosis without myelopathy or radiculopathy, lumbosacral region; M51.36 Other intervertebral disc degeneration, lumbar region; Z79.1 Long term (current) use of non-steroidal anti-inflammatories (NSAID)
CPT/HCPCS: 81025; 64635; J2250; J1030; J3010; J2795

== ENCOUNTER → 2021-11-06 | Outpatient (CLI) | payer OTHER ==
--- NOTE | 2021-11-06 11:07 | XR ---
EXAMINATION TYPE: XR chest 2V DATE OF EXAM: 11/06/2021 COMPARISON: [facility] x-ray 07/13/2013 HISTORY: Cough TECHNIQUE: Frontal and lateral views of the chest are obtained. FINDINGS: There is some bronchial wall thickening. There is no focal air space opacity, pleural effu garry, or pneumothorax seen. The cardiac silhouette size is within normal limits. The osseous struc tures are intact, there is a mild spinal curvature. IMPRESSION: Correlate for bronchitis, reactive airways disease
== END | disposition home or self-care (01) ==
LOC: RADXRMAIN 08:59
PROVIDERS: ATTEND Nurse Practitioner Family
DX: J40 Bronchitis, not specified as acute or chronic (principal)
CPT/HCPCS: 71046

== ENCOUNTER 2022-06-04 09:37 | Day surgery (SDC) | payer OTHER ==
[2022-06-01 10:28] VITALS: BMI 32.3
[~2022-06-04 09:37] MED LIST changes: -LACTATED RINGERS 1,000 ML IV SCH
[2022-06-04 09:53] VITALS: TEMP 98.4
[2022-06-04] MEDS: LACTATED RINGERS 1,000 ML IV SCH ×2 (09:59→10:13)
[2022-06-04] MEDS ORDERED: ROPIVACAINE 5 MG/ML 20 ML AMPULE ONE (10:15)
[2022-06-04] MEDS ORDERED: methylPREDNISolone ACETATE 40 MG/ML 1 ML VIAL ONE (10:15)
[2022-06-04] MEDS ORDERED: MIDAZOLAM 2 MG/2 ML VIAL ONE (10:15)
[2022-06-04] MEDS ORDERED: fentaNYL (PF) 50 MCG/ML 2 ML AMP ONE (10:15)
--- NOTE | 2022-06-04 10:42 | P.PCN ---
Date of Procedure: 06/04/22 Procedure(s) Performed: PREOPERATIVE DIAGNOSIS: 1-Lumbar Spondylosis with Facet Arthropathy without myelopathy. 2- Lumber degenerative disc disease. POSTOPERATIVE DIAGNOSIS: 1- Lumbar Spondylosis with Facet Arthropathy without myelopathy. 2- Lumber degenerative disc disease. PROCEDURES : Bilateral Radiofrequency thermocoagulation, L3 , L4 , and L5 medial branch, with fluoroscopic guidance (fluoroscopy images available in the radiology department) ( to denervate the facet joint at bilateral L4-5 ,and L5-S1 levels ). ANESTHESIA: Monitored anesthesia care as per anesthesia department . EBL: Minimal PROCEDURE INDICATION: The patient with low back pain secondary to lumbar facet arthropathy who had more than 50% relief of her pain with previous diagnostic lumbar medial branch block with bupivacaine. PROCEDURE DESCRIPTION / TECHNIQUE: The patient was seen and identified in the preoperative area. Risks, benefits, complications, including but not limited to risk of infection ,bleeding , allergic reactions to the medications and no complete pain releife , and alternatives were discussed with the patient, the patient agreed to proceed with the procedure and signed the consent. IV was started. Vital signs remained stable throughout the procedure. Patient was taken to the OR and time out was completed. The patient was placed in the prone position on the procedure table. The lumber area was prepped and draped in the usual sterile fashion. . Vital signs were closely monitored during the procedure .IV sedation was used during the procedure to decrease patients anxiety. Using AP and then oblique fluoroscopy, the ``eye of the Jaylon dog co rresponding to the connection between the superior and transverse articular processes of right L3, L4, and L5 were identified, marked, and localized with 1% lidocaine. Subsequently, a 18 -qe radiofrequency cannula with a 10- mm active tip was advanced guided by fluoroscopy to each of the``eyes of the Jaylon dog at right L3, L4, and L5. Each site then underwent sensory testing at 50 Hz and 0 to 1 volt and motor testing at 2.5 Hz and 0 to 3 volt with local stimulation, but no radicular symptoms down the legs. Thereafter each sites underwent radiofrequency thermocoagulation at 80 degrees celsius for 90 seconds after injecting 0.5 ml of PF Ropivacaine 1ml, then after the thermocoagulation done , 1 ml of the block solution containing Depo-Medrol 20 mg and 3 ml of Ropivacaine 0.5% was injected at the right L3 , L4 , and L5 , levels after negative aspiration of CSF and blood and with no paresthesias. Cannulas were retracted while injecting lidocaine 1% until the needle is out. The same procedure was repeated at the level of Left L3, L4, and L5 levels. At the end of the procedure, the skin was cleansed and bandages were applied. COMPLICATIONS: No acute complications. DISPOSITION / PLANS: The patient was placed in a supine position and transferred to the recovery area in a stable condition for observation and was discharged from the recovery room after meeting discharge criteria. Home discharge instructions given to the patient by the staff. The patient was reexamined prior to discharge. The patient will schedule a follow up in the clinic in 2-4 weeks.
[2022-06-04] MEDS ORDERED: IV FLUID CONTINUATION 700 ML IV ONE (10:52)
[2022-06-04 10:54] VITALS: RESP 16
[2022-06-04 11:24] VITALS: BP 130/84; PULSE 74
--- NOTE | 2022-06-04 16:29 | FL ---
Intraoperative/procedural fluoroscopic services were provided. Total fluoroscopy time is 36 seconds w ith a total of 6 submitted images to PACS. Please see the operative/procedural note for further detai ls. DAP: [id number]
== END 2022-06-04 11:20 | disposition home or self-care (01) ==
LOC: ORPAIN 09:37
PROVIDERS: ATTEND Specialist
DX: M51.36 Other intervertebral disc degeneration, lumbar region (principal); M47.816 Spondylosis without myelopathy or radiculopathy, lumbar region; Z79.1 Long term (current) use of non-steroidal anti-inflammatories (NSAID)
CPT/HCPCS: 81025; 64635; 64636 ×2; J2250; J1030; J3010; J2795

== ENCOUNTER → 2022-07-15 | Outpatient (CLI) | payer OTHER ==
[2022-07-15 12:22] VITALS: BP 130/88; PULSE 86; RESP 18; TEMP 98.7
--- NOTE | 2022-07-15 14:26 | P.PAINPG ---
PQRS Measure Charge Sheet Comment: A 37 yr old female with a history of severe and chronic LBP secondary to lumbar DDD and spondylosis with facet arthropathy without myelopathy presents today for evalaution s/p BL RFA L3-L5. 80% pain relief s/p procedure. Pain level is provoked at 8/10 in intensity, constant, localized in the lumbar spine, pinching in character w shooting towards the LLE. Pain is provoked by standing/ walking for periods of 30 min or more. Pain is alleviated with PT in 2020, physician guided exercises multiple times weekly since 2020, massages at home, medications, heat, ice, repositioning and rest. Interventional pain procedures completed include BL RFA L3-L5 Patient is currently on Aleve, Ibu Patient denies any side effects of the medication(s), denies excessive drowsiness or sleepiness, denies suicidal ideation and reports that the current pain medication is helping to control the pain and improve activities of daily living. Patient denies any motor or sensory deficits. Patient denies any fever or night sweats, denies any change in the bowel movements or urination. Physical Examination: -Constitutional: Cooperative. Not in acute distress . - Neurologic: Cranial nerve II to XII intact. No focal neurological deficits. - Psychatric: Alert & oriented x 3. Matching mood & appropriate affect. Judgment and insight intact. - Musculoskeletal: Cervical spine: Muscle bulk/ tone/ strength in the bilateral upper extremities normal Vertebral body tenderness to palpation over Spurling test positive Distraction test positive Facet loading test positive TTP Thoracic spine Muscle bulk / tone/ strength in the bilateral paraspinal muscles normal Vertebral body tender to palpation over Facet loading test positive TTP Lumbar spine: Motor bulk/ tone/ strength lower extremities , thigh and legs : 5/5 Deep tendon reflexes : Normal Knee Jerk. Normal Ankle Jerk . Vertebral body tenderness to palpation over Rios Test positive Lumbar Facet Loading Test positive Straight Leg Raise: positive at 30 degrees right side/ left side Gaenslen's Test positive Sacral spine : Severe tenderness over the Sacroiliac joint: right side / left side Range of motion: Flexion of the lumbar spine <60 degrees Range of motion: Extension of the lumbar spine <20 degrees Gaenslen's Test positive right side / left side Nabor test: positive right side / left side Thigh Thrust Test positive right side / left side Sacral Thrust Test positive right side / left side Assessment and plan: Chronic LBP secondary to lumbar DDD, spondylosis with facet arthropathy without myelopathy Recommendation of PT x 6 wks re: M51.36. All questions answered. I have spent less than 30 minutes on patient care today. Dr Theodore was available by phone for the evaluation of this patient. The time was used to review the medical records including relevant urine studies and Prescription history (MAPs), review of the available imaging, evaluation and examination of the patient, coordination of care with the medical staff and if applicable referring physicians, as well as creation of the medical record PQRS Narrative: Smoking Status Never smoker Hx Alcohol Use (MH) Yes: Rare Home Medications: Ambulatory Orders Ibuprofen [Motrin] 600 mg PO Q12HR PRN 30 Days #60 tab 08/20/21 tiZANidine HCL [Zanaflex] 4 mg PO TID PRN 30 Days #60 capsule 09/24/21 Controlled Substance Measures - Controlled Substance Measures Is patient prescribed a controlled substance at discharge?: No
== END ==
LOC: PNWHC3 10:59
PROVIDERS: ATTEND Specialist
DX: M51.36 Other intervertebral disc degeneration, lumbar region (principal); M47.816 Spondylosis without myelopathy or radiculopathy, lumbar region; G89.29 Other chronic pain
CPT/HCPCS: 99211

== ENCOUNTER → 2022-12-01 | Outpatient (CLI) | payer OTHER ==
[2022-12-01 11:05] VITALS: BP 131/86; PULSE 89; RESP 15; TEMP 98.7
--- NOTE | 2022-12-01 14:33 | P.PAINPG ---
PQRS Measure Charge Sheet Comment: A 37 yr old female with a history of severe and chronic LBP secondary to lumbar DDD and spondylosis with facet arthropathy without myelopathy presents today for evaluation. Pain level is provoked at 5/10 in intensity, constant, localized in the lumbar spine, throbbing in character w shooting towards the bu ttocks. Pain is provoked by standing/ walking for periods of 30 min or more. Pain is alleviated with physician guided exercises multiple times weekly since 2020, massages at home, medications, heat, ice, repositioning and rest. Oswestry axial pain score of 18. Interventional pain procedures completed include BL RFA L3-L5 (Sep 2021, May 2022) Patient is currently on Aleve, Ibu Patient denies any side effects of the medication(s), denies excessive drowsiness or sleepiness, denies suicidal ideation and reports that the current pain medication is helping to control the pain and improve activities of daily living. Patient denies any motor or sensory deficits. Patient denies any fever or night sweats, denies any change in the bowel movements or urination. Physical Examination: -Constitutional: Cooperative. Not in acute distress . - Neurologic: Cranial nerve II to XII intact. No focal neurological deficits. - Psychatric: Alert & oriented x 3. Matching mood & appropriate affect. Judgment and insight intact. - Musculoskeletal: Cervical spine: Muscle bulk/ tone/ strength in the bilateral upper extremities normal Vertebral body tenderness to palpation over Spurling test positive Distraction test positive Facet loading test positive TTP Thoracic spine Muscle bulk / tone/ strength in the bilateral paraspinal muscles normal Vertebral body tender to palpation over Facet loading test positive TTP Lumbar spine: Motor bulk/ tone/ strength lower extremities , thigh and legs : 5/5 Deep tendon reflexes : Normal Knee Jerk. Normal Ankle Jerk . Vertebral body tenderness to palpation over Rios Test positive Lumbar Facet Loading Test positive Straight Leg Raise: positive at 30 degrees right side/ left side Gaenslen's Test positive Sacral spine : Severe tenderness over the Sacroiliac joint: right side / left side Range of motion: Flexion of the lumbar spine <60 degrees Range of motion: Extension of the lumbar spine <20 degrees Gaenslen's Test positive right side / left side Nabor test: positive right side / left side Thigh Thrust Test positive right side / left side Sacral Thrust Test positive right side / left side Assessment and plan: Chronic LBP secondary to lumbar DDD, spondylosis with facet arthropathy without myelopathy Recommendation of PT x 6 wks re: M51.36. All questions answered. I have spent less than 30 minutes on patient care today. Dr Theodore was available by phone for the evaluation of this patient. The time was used to review the medical records including relevant urine studies and Prescription history (MAPs), review of the available imaging, evaluation and examination of the patient, coordination of care with the medical staff and if applicable referring physicians, as well as creation of the medical record PQRS Narrative: Smoking Status Never smoker Hx Alcohol Use (MH) Yes: Rare Home Medications: Ambulatory Orders Ibuprofen [Motrin] 600 mg PO Q12HR PRN 30 Days #60 tab 08/20/21 tiZANidine HCL [Zanaflex] 4 mg PO TID PRN 30 Days #60 capsule 09/24/21 Controlled Substance Measures - Controlled Substance Measures Is patient prescribed a controlled substance at discharge?: No
== END ==
LOC: PNWHC3 09:31
PROVIDERS: ATTEND Specialist
DX: M51.36 Other intervertebral disc degeneration, lumbar region (principal); M47.816 Spondylosis without myelopathy or radiculopathy, lumbar region; G89.29 Other chronic pain
CPT/HCPCS: 99211

== ENCOUNTER → 2022-12-02 | Outpatient (CLI) | payer OTHER ==
[2022-12-02 16:40] LABS: Basophils # (A) 0.06 X 10*3/uL (0.00-0.10); Basophils % (A) 0.8 %; Eosinophils # (A) 0.27 X 10*3/uL (0.04-0.35); Eosinophils % (A) 3.5 %; HCT 42.2 % (37.2-46.3); HGB 13.9 d/dL (12.0-15.0); Lymphocytes # (A) 2.12 X 10*3/uL (0.90-5.00); Lymphocytes % (A) 27.1 %; MCH 30.8 pg (27.0-32.0); MCHC 32.9 d/dL (32.0-37.0); MCV 93.4 FL (80.0-97.0); Mean Platelet Volume 10.8 FL (9.5-12.2); Monocytes # (A) 0.86 X 10*3/uL (0.20-1.00); NRBC Per 100 WBC 0 X 10*3/uL (0.00-0.01); Neutrophils # (A) 4.47 X 10*3/uL (1.80-7.70); Neutrophils % (A) 57.1 %; Platelet Count 289 X 10*3/uL (140-440); RBC 4.52 X 10*6/uL (4.10-5.20); RDW 12.6 % (11.5-14.5); WBC 7.82 X 10*3/uL (4.50-10.00)
[2022-12-02 18:32] LABS: ALT 21 U/L (8-44); AST 22 U/L (13-35); Albumin 4.2 d/dL (3.8-4.9); Alkaline Phosphatase 73 U/L (41-126); BUN/Creat Ratio 15.71 Ratio (12.00-20.00); Calcium 9.5 mg/dL (8.7-10.3); Carbon Dioxide 21.9 mmol/L (21.6-31.8); Chloride 103 mmol/L (96-109); Chol/HDL Ratio 4.12 Ratio; Glucose 111 mg/dL (70-110); LDL Cholesterol,Calculated 133.6 mg/dL (0.0-131.0); Potassium 4.1 mmol/L (3.5-5.5); Sodium 140 mmol/L (135-145); Total Bilirubin 0.3 mg/dL (0.3-1.2); Total Protein 7.2 d/dL (6.2-8.2)
== END | disposition home or self-care (01) ==
LOC: LABWHC1 08:59
PROVIDERS: ATTEND Family Medicine
DX: Z00.00 Encounter for general adult medical examination without abnormal findings (principal); Z13.1 Encounter for screening for diabetes mellitus; Z13.220 Encounter for screening for lipoid disorders
CPT/HCPCS: 36415; 80053; 80061; 85025